=== PATIENT | female | born 1965 | race African-American/Black ===

== ENCOUNTER 2025-01-24 05:52 | Emergency (ER) | payer BC ==
[2025-01-24 06:14] LABS: #Basophils 0.04 10x3/uL (0.0-0.2); #Eosinophils 0.23 10x3/uL (0.0-0.5); #Monocytes 0.60 10x3/uL (0.0-1.1); #Neutrophils 3.98 10x3/uL (1.5-8.4); %Basophils 0.6 % (0.0-2.0); %Eosinophils 3.3 % (0.0-6.0); %Lymphocytes 30.9 % (18.0-47.0); %Monocytes 8.5 % (0.0-10.0); %Neutrophils 56.4 % (40.0-75.0); Hematocrit 35.9 % (34.9-44.5); Hemoglobin 11.9 g/dL (12.0-15.5); Mean Corpuscular Hemoglobin 27.6 pg (27.0-33.0); Mean Corpuscular Volume 83.3 fL (81.6-98.3); Platelet Count 215 10x3/uL (150-450); Red Blood Cell (RBC) Count 4.31 10x6/uL (3.90-5.03); White Blood Cell (WBC) Count 7.05 10x3/uL (3.5-10.5)
[2025-01-24 06:32] LABS: ALT (SGPT) 13 U/L (Less than 34); AST (SGOT) 17 U/L (11-34); Albumin 3.7 g/dL (3.1-4.5); Alkaline Phosphatase 60 U/L (40-110); Anion Gap 13 mmol/L (10-20); BUN (Urea Nitrogen) 9 mg/dL (9.8-20.1); Bilirubin, Total 0.5 mg/dL (0.3-1.2); Calc. Creatinine Clearance 0 mL/min (70-130); Calcium 8.7 mg/dL (7.8-10.44); Carbon Dioxide 23 mmol/L (22-29); Chloride 109 mmol/L (98-107); Globulin 3.4 g/dL (2.4-3.5); Glucose 102 mg/dL (70-105); Potassium 4.2 mmol/L (3.5-5.1); Sodium 141 mmol/L (136-145)
[2025-01-24 06:38] LABS: Troponin I Less than 0.010 ng/mL (< 0.028)
[2025-01-24 07:35] LABS: Glucose, Urine (Dipstick) Normal (Negative); Leukocyte 500 (Negative); Protein, Urine (Dipstick) 15 mg/dl (Neg-Trace); Specific Gravity, Urine 1.005 (1.005-1.030)
[2025-01-24 07:49] LABS: Bacteria/HPF 1+ HPF (None Seen); CAUTI Indications for Culture Alt mental st,lethar; RBC/HPF 0-3 HPF (0-3)
[2025-01-24 07:50] LABS: Urine Culture Reflex No No
[2025-01-24] MEDS ORDERED: Iopamidol 370 76% 100 ML VIAL ONE (12:22)
== END 2025-01-24 08:16 | disposition home or self-care (01) ==
LOC: CSHERS 05:52
DX: R42 Dizziness and giddiness (principal); F41.9 Anxiety disorder, unspecified; R29.700 NIHSS score 0
CPT/HCPCS: 70496; 70498; 80053; 81001; 83880; 84484; 85025; 93005; 96372; J3360